=== PATIENT | female | born 1995 | race Caucasian/White ===

== ENCOUNTER 2020-11-05 07:20 | Emergency (ER) | payer MEDICAID ==
[~2020-11-05] VITALS: Ht 170.2 cm; Wt 104.0 kg
[~2020-11-05 07:20] MED LIST: IBUP-2030 MT
[2020-11-05] MEDS ORDERED: MORPHINE SULFATE 4 MG/ML CPJ (NOT FOR IM USE) IV STA (09:31)
[2020-11-05 09:47] LABS: BASOPHILS % 0.4 % (0.0-2.0); EOSINOPHILS % 3.8 % (0.0-5.0); HEMATOCRIT. 42.8 % (36.0-48.0); HEMOGLOBIN. 14.6 g/dL (12.0-16.0); LYMPHOCYTES % 12.3 % (20.0-50.0); MEAN CORPUSCULAR VOLUME 96.8 fL (81.0-99.0); MEAN PLATELET VOLUME 8.4 fl (7.4-10.4); MONOCYTES % 10.4 % (2.0-8.0); NEUTROPHILS % 73.1 % (40.0-76.0); PLATELET 203 x1000/uL (130-400); RED BLOOD CELL COUNT 4.42 mill/uL (4.2-5.4); RED CELL DISTRIBUTION WIDTH 12.8 % (11.6-14.6)
[2020-11-05 09:49] LABS: CHLORIDE 106 mEq/L (98-107)
[2020-11-05 09:52] LABS: PROTHROMBIN TIME 10.3 sec (9.6-11.0)
[2020-11-05 09:54] LABS: CLARITY URINE CLEAR (CLEAR); COLOR URINE YELLOW (YELLOW); KETONES URINE NEGATIVE (NEGATIVE); LEUKOCYTE ESTERASE URINE TRACE (NEGATIVE); NITRITE URINE NEGATIVE (NEGATIVE); OCCULT BLOOD URINE NEGATIVE (NEGATIVE); PH URINE 5.5 (4.5-8.0); PROTEIN URINE NEGATIVE (NEGATIVE); SPECIFIC GRAVITY URINE 1.014 (1.005-1.030); UROBILINOGEN URINE 0.2 E.U./dL (0.2-1.0)
[2020-11-05 10:07] LABS: HCG SCREEN NEGATIVE
[2020-11-05] MEDS ORDERED: MORPHINE SULFATE 4 MG/ML CPJ (NOT FOR IM USE) IV ONE (15:00)
[2020-11-05] MEDS ORDERED: T3 PO (15:52)
[2020-11-05] MEDS ORDERED: IBUP-2030 PO (15:52)
[2020-11-05] MEDS ORDERED: KETOROLAC 30MG/ML VIAL IV ONE (16:00)
[2020-11-05 17:33] VITALS: BP 115/72
== END 2020-11-05 17:37 | disposition home or self-care (01) ==
LOC: ER 07:20
DX: R10.9 Unspecified abdominal pain (principal); F12.10 Cannabis abuse, uncomplicated; Z98.890 Other specified postprocedural states
CPT/HCPCS: 36415; 74176; 80053; 81003; 81025; 83690; 84703; 85025; 85610; 96374; 96375; 96376; 99285; J1885; J2270

== ENCOUNTER 2021-08-21 19:39 | Emergency (ER) | payer MEDICAID ==
[~2021-08-21] VITALS: Ht 167.6 cm; Wt 93.2 kg
[~2021-08-21 19:39] MED LIST changes: +IBUP-2030 PO; +T3 PO
[2021-08-21 22:00] VITALS: BP 140/80
[2021-08-21] MEDS ORDERED: IBUP-2029 MT (22:45)
[2021-08-21] MEDS ORDERED: FLUT9.9S16 BOTHNSTRLS (22:45)
[2021-08-21] MEDS ORDERED: ACETAMINOPHEN 325MG TABLET PO ONE (23:00)
[2021-08-21] MEDS ORDERED: LORAZEPAM 0.5MG TABLET PO ONE (23:00)
== END 2021-08-22 00:08 | disposition home or self-care (01) ==
LOC: ER 19:39
DX: B34.9 Viral infection, unspecified (principal); Z68.33 Body mass index [BMI] 33.0-33.9, adult
CPT/HCPCS: 71045; 93005; 99283